=== PATIENT | female | born 1965 | race Caucasian/White ===

== ENCOUNTER 2018-10-24 10:00 | Outpatient (RCR) | payer BC, SELFPAY ==
--- NOTE | 2018-08-02 17:01 | PT.OIE ---
Current Diagnoses Stress incontinence (female) (male) (08/02/18) Provider Visit Care Team Role Provider Type L Kathy Sotomayor MD Family Provider Non-Staff Primary Care Provider Specialty: Family Practice Address: [address] [place] [address], [id number] Email: Loreta Castillo MD Attending Provider Non-Staff Specialty: HEALTH FACILITIES SURVEYOR Address: [facility] [address], [place], [address] Email: Physical Therapy Initial Evaluation PT-OP-A Visit Information Start: 08/02/18 16:32 Freq: Status: Active Protocol: Document 08/02/18 16:33 [facility] (Rec: 08/02/18 17:00 [facility] [email or web address]) Out-Patient Physical Therapy Visit Information Visit Information Visit Type Initial Evaluation Visit Start Time 13:45 Visit Stop Time 14:30 Total Visit Minutes 45 Visit Number 1 Evaluation Information Evaluation Date 08/02/18 PT-OP-B Current Condition Start: 08/02/18 16:32 Freq: Status: Active Protocol: Document 08/02/18 16:33 [facility] (Rec: 08/02/18 17:00 [facility] [email or web address]) Current Condition History of Current Condition Onset Date worsening symptoms in the past year Current Complaints c/o urinary incontinence with exercise and urgency History of Current Condition The patient is a 52 year old female who has has 6 vaginal deliveries and 1 delivery. Her youngest child is 12 years old. She reports experiencing increased symptoms of leakage in the past year. Her symptoms started slow but have progressed to more often. Treatment Goals Patient/Caregiver Goals The patients goals include being able to exercise or run after her grandkids without leakage and to urgency PT-OP-I Pelvic Floor Start: 08/02/18 16:32 Freq: Status: Active Protocol: Document 08/02/18 16:33 [facility] (Rec: 08/02/18 17:00 [facility] [email or web address]) Pelvic Floor Assessment Urine Pelvic Floor Surgery No Urinary Symptoms Urge Sensation Leakage Size Small Leakage Cause Cough Exercise Lifting Sneeze Urge Leaks Per Day depends on the activitiy and the day Voiding Frequency pt to fill out a bladder diary as she had a difficult time guessing Nocturia wakes at night to void sometimes Pelvic Clock Pelvic Clock 12-3 Atrophy Pelvic Clock 3-6 Atrophy Pelvic Clock 6-9 Atrophy Pelvic Clock 9-12 Atrophy Prolapse Cystocele Grade 1 SEMG (uV) Baseline 0 10 Second Contraction 4.4 Recruitment Pattern Poor/Slow Relaxation Poor/Slow Holding Poor/Slow Stability of Hold Poor/Slow SEMG Stability of Rest Good Contraction Ability Voluntary Contraction Weak Manual Muscle Testing Left 2 Manual Muscle Testing Right 2 Manual Muscle Testing Anterior 1 Manual Muscle Testing Posterior 2 Muscle Endurance (Seconds) 3 Comments Pelvic Floor Comments difficulty sustaining a pelvic floor contraction and she tends to use her gluteals if holding longer than a few seconds. Average on EMG biofeedback is 4.4 uv with maximum of 9.8 uv PT-OP-Q Treatments Start: 08/02/18 16:32 Freq: Status: Active Protocol: Document 08/02/18 16:33 [facility] (Rec: 08/02/18 17:00 [facility] [email or web address]) Therapeutic Exercises Supine Exercises 2 Supine Exercise Name roll outs with theraband Side bilateral Reps/Minutes 2 x10 reps 1 Supine Exercise Name isometric ball squeeze Reps/Minutes x 10 reps Neuro Re-Education Treatment Other Activities 1 Details pelvic floor neuro re- education with EMG biofeedback for pelvic floor Comments worked on recruitement of the anterior section of the levator ani PT-OP-T Assessment and Plan Start: 08/02/18 16:32 Freq: Status: Active Protocol: Document 08/02/18 16:33 [facility] (Rec: 08/02/18 17:00 [facility] [email or web address]) Physical Therapy Assessment Rehab Potential Rehabilitation Potential Good Evaluation Complexity Number of Personal Factors/Comorbidities 0 Number of Body Systems Impaired 1-2 Clinical Presentation at Evaluation Stable Impairments Impairments Activity Tolerance Strength Tone Other Impairments urinary incontinence Goals Four Impairment urinary stress incontinence Fpc Goal (LTG) With physical therapy and home strenthening Radha is able to eliminate her incontinence and provide a better shelf of support for her bladder to decrease pelvic organ prolapse . Three Impairment substitution of the gluteals for the pelvic floor Short Term Goal (STG) Radha is educated on levator ani recruitment utilizing EMG biofeedback and is able to sustain a contraction without gluteal substitution STG Duration 5 weeks Two Impairment poor endurance of the levator ani Short Term Goal (STG) improve endurance of the levator ani to 10 second hold time in supine STG Duration 5 weeks One Impairment Weakness of the levator ani, poor activation of the anterior pubococcygeus Fpc Goal (LTG) Improve levator ani recruitment and strength to improve to 3/5 or better on MMT LTG Duration 8 weeks Assessment Summary Assessment Radha presents to physical therapy today with signs and symptoms of urinary stress incontinence. She has had 6 vaginal deliveries and 1 C- section and notes her symptoms have been slowly worsening since her last delivery 12 years ago. She does have a slight prolapse as well but is not experiencing any symptoms of this. With examination today she is very weak in her pelvic floor musculature and has poor anterior pubococcygeus recruitment. She tends to substitute with her gluteals and has limited endurance of her pelvic floor. She responded well today with EMG biofeedback and I also began using her hip rotation to help her facilitate her pelvic floor. She is a good candidate for Physical therapy. Physical Therapy Plan Frequency and Duration Frequency of Treatment 1x/Week Duration of Treatment 8 weeks Plan of Care Start Date 08/02/18 Plan of Care End Date 09/27/18 Therapeutic Interventions Therapeutic Interventions Home Exercise Program Neuromuscular Re-education Patient/Caregiver Education Self-Care/Home Management Therapeutic Exercises Modalities Biofeedback Next Visit Focus/Plan Next Note Type Treatment Note Next Visit Plan EMG biofeedback for neuromuscular awareness of the pelvic floor, Begin working on Transverse abdominal stabilization
--- NOTE | 2018-08-02 17:01 | PT.OPPOC ---
Current Diagnoses Stress incontinence (female) (male) (08/02/18) Provider Visit Care Team Role Provider Type L Kathy Sotomayor MD Family Provider Non-Staff Primary Care Provider Specialty: Family Practice Address: [address] [place] [address], [id number] Email: Loreta Castillo MD Attending Provider Non-Staff Specialty: REEFER ENGINEER Address: [facility] [address], [place], [address] Email: Plan Of Care PT-OP-T Assessment and Plan Start: 08/02/18 16:32 Freq: Status: Active Protocol: Document 08/02/18 16:33 [facility] (Rec: 08/02/18 17:00 [facility] [email or web address]) Physical Therapy Assessment Rehab Potential Rehabilitation Potential Good Evaluation Complexity Number of Personal Factors/Comorbidities 0 Number of Body Systems Impaired 1-2 Clinical Presentation at Evaluation Stable Impairments Impairments Activity Tolerance Strength Tone Other Impairments urinary incontinence Goals Four Impairment urinary stress incontinence Side Hemmer Goal (LTG) With physical therapy and home strenthening Radha is able to eliminate her incontinence and provide a better shelf of support for her bladder to decrease pelvic organ prolapse . Three Impairment substitution of the gluteals for the pelvic floor Short Term Goal (STG) Radha is educated on levator ani recruitment utilizing EMG biofeedback and is able to sustain a contraction without gluteal substitution STG Duration 5 weeks Two Impairment poor endurance of the levator ani Short Term Goal (STG) improve endurance of the levator ani to 10 second hold time in supine STG Duration 5 weeks One Impairment Weakness of the levator ani, poor activation of the anterior pubococcygeus Side Hemmer Goal (LTG) Improve levator ani recruitment and strength to improve to 3/5 or better on MMT LTG Duration 8 weeks Assessment Summary Assessment Radha presents to physical therapy today with signs and symptoms of urinary stress incontinence. She has had 6 vaginal deliveries and 1 C- section and notes her symptoms have been slowly worsening since her last delivery 12 years ago. She does have a slight prolapse as well but is not experiencing any symptoms of this. With examination today she is very weak in her pelvic floor musculature and has poor anterior pubococcygeus recruitment. She tends to substitute with her gluteals and has limited endurance of her pelvic floor. She responded well today with EMG biofeedback and I also began using her hip rotation to help her facilitate her pelvic floor. She is a good candidate for Physical therapy. Physical Therapy Plan Frequency and Duration Frequency of Treatment 1x/Week Duration of Treatment 8 weeks Plan of Care Start Date 08/02/18 Plan of Care End Date 09/27/18 Therapeutic Interventions Therapeutic Interventions Home Exercise Program Neuromuscular Re-education Patient/Caregiver Education Self-Care/Home Management Therapeutic Exercises Modalities Biofeedback Next Visit Focus/Plan Next Note Type Treatment Note Next Visit Plan EMG biofeedback for neuromuscular awareness of the pelvic floor, Begin working on Transverse abdominal stabilization Plan of Care Dates Plan of Care Start Date 08/02/18 Plan of Care End Date 09/27/18 Please Sign and Return: I have reviewed this Plan of Care and certify that the skilled therapy services above are required to meet the patient?s needs. Physician Signature Date Printed Name and Credentials Clinical Instructor Signature Printed Name and Credentials
--- NOTE | 2018-08-28 12:48 | PT.OTN ---
Current Diagnoses Stress incontinence (female) (male) (08/28/18) Physical Therapy Treatment Note PT-OP-A Visit Information Start: 08/02/18 16:32 Freq: Status: Active Protocol: Document 08/28/18 12:39 [facility] (Rec: 08/28/18 12:48 [facility] [email or web address]) Out-Patient Physical Therapy Visit Information Visit Information Visit Type Treatment Note Visit Start Time 09:00 Visit Stop Time 09:45 Total Visit Minutes 45 Visit Number 2 Evaluation Information Evaluation Date 08/02/18 PT-OP-B Current Condition Start: 08/02/18 16:32 Freq: Status: Active Protocol: Document 08/02/18 16:33 [facility] (Rec: 08/02/18 17:00 [facility] [email or web address]) Current Condition History of Current Condition Onset Date worsening symptoms in the past year Current Complaints c/o urinary incontinence with exercise and urgency History of Current Condition The patient is a 52 year old female who has has 6 vaginal deliveries and 1 delivery. Her youngest child is 12 years old. She reports experiencing increased symptoms of leakage in the past year. Her symptoms started slow but have progressed to more often. Treatment Goals Patient/Caregiver Goals The patients goals include being able to exercise or run after her grandkids without leakage and to urgency PT-OP-C Subjective Start: 08/02/18 16:32 Freq: Status: Active Protocol: Document 08/28/18 12:39 [facility] (Rec: 08/28/18 12:48 [facility] [email or web address]) OP-PT Subjective Patient Comments Patient Comments Radha reports she has been trying to do the exercises but it was such a long time between visits it has been difficult to feel what she is actually doing. PT-OP-I Pelvic Floor Start: 08/02/18 16:32 Freq: Status: Active Protocol: Document 08/02/18 16:33 [facility] (Rec: 08/02/18 17:00 [facility] [email or web address]) Pelvic Floor Assessment Urine Pelvic Floor Surgery No Urinary Symptoms Urge Sensation Leakage Size Small Leakage Cause Cough Exercise Lifting Sneeze Urge Leaks Per Day depends on the activitiy and the day Voiding Frequency pt to fill out a bladder diary as she had a difficult time guessing Nocturia wakes at night to void sometimes Pelvic Clock Pelvic Clock 12-3 Atrophy Pelvic Clock 3-6 Atrophy Pelvic Clock 6-9 Atrophy Pelvic Clock 9-12 Atrophy Prolapse Cystocele Grade 1 SEMG (uV) Baseline 0 10 Second Contraction 4.4 Recruitment Pattern Poor/Slow Relaxation Poor/Slow Holding Poor/Slow Stability of Hold Poor/Slow SEMG Stability of Rest Good Contraction Ability Voluntary Contraction Weak Manual Muscle Testing Left 2 Manual Muscle Testing Right 2 Manual Muscle Testing Anterior 1 Manual Muscle Testing Posterior 2 Muscle Endurance (Seconds) 3 Comments Pelvic Floor Comments difficulty sustaining a pelvic floor contraction and she tends to use her gluteals if holding longer than a few seconds. Average on EMG biofeedback is 4.4 uv with maximum of 9.8 uv PT-OP-Q Treatments Start: 08/02/18 16:32 Freq: Status: Active Protocol: Document 08/28/18 12:39 [facility] (Rec: 08/28/18 12:48 [facility] [email or web address]) Therapeutic Exercises Supine Exercises 4 Supine Exercise Name pelvic floor quick contractions Reps/Minutes 10 reps with 2 second hold each 3 Supine Exercise Name pelvic floor long holds Reps/Minutes 10 second hold time with 10 second relaxation 2 Supine Exercise Name roll outs with theraband Side bilateral Reps/Minutes 2 x10 reps 1 Supine Exercise Name isometric ball squeeze Reps/Minutes x 10 reps Sidelying Exercises 1 Sidelying Exercise Name clam shells Reps/Minutes 3 x 10 reps Neuro Re-Education Treatment Other Activities 1 Details pelvic floor neuro re- education with NMES x 10 minutes for improved Comments for improved facilitation of the pelvic floor PT-OP-T Assessment and Plan Start: 08/02/18 16:32 Freq: Status: Active Protocol: Document 08/28/18 12:39 [facility] (Rec: 08/28/18 12:48 [facility] [email or web address]) Physical Therapy Assessment Assessment Summary Assessment Radha was improving with her maximum contraction today. Her average is 6.0 uv with max of 15.2 ( was 4.0 uv with max of 9.8 uv) We did a trial of NMES and she did well with this. I recommended a home rental for a month for improved facilitation of the pelvic floor. She did not feel the NMES until it was at level 10. Physical Therapy Plan Frequency and Duration Frequency of Treatment 1x/Week Duration of Treatment 8 weeks Plan of Care Start Date 08/02/18 Plan of Care End Date 09/27/18 Therapeutic Interventions Therapeutic Interventions Home Exercise Program Neuromuscular Re-education Patient/Caregiver Education Self-Care/Home Management Therapeutic Exercises Modalities Biofeedback Next Visit Focus/Plan Next Note Type Treatment Note Next Visit Plan progress pelvic floor and add in TA facilitation
--- NOTE | 2018-09-19 14:27 | PT.OTN ---
Current Diagnoses Stress incontinence (female) (male) (09/19/18) Physical Therapy Treatment Note PT-OP-A Visit Information Start: 08/02/18 16:32 Freq: Status: Active Protocol: Document 09/19/18 14:19 [facility] (Rec: 09/19/18 14:27 [facility] [email or web address]) Out-Patient Physical Therapy Visit Information Visit Information Visit Type Treatment Note Visit Start Time 10:00 Visit Stop Time 10:45 Total Visit Minutes 45 Visit Number 3 Evaluation Information Evaluation Date 08/02/18 PT-OP-B Current Condition Start: 08/02/18 16:32 Freq: Status: Active Protocol: Document 08/02/18 16:33 [facility] (Rec: 08/02/18 17:00 [facility] [email or web address]) Current Condition History of Current Condition Onset Date worsening symptoms in the past year Current Complaints c/o urinary incontinence with exercise and urgency History of Current Condition The patient is a 52 year old female who has has 6 vaginal deliveries and 1 delivery. Her youngest child is 12 years old. She reports experiencing increased symptoms of leakage in the past year. Her symptoms started slow but have progressed to more often. Treatment Goals Patient/Caregiver Goals The patients goals include being able to exercise or run after her grandkids without leakage and to urgency PT-OP-C Subjective Start: 08/02/18 16:32 Freq: Status: Active Protocol: Document 09/19/18 14:19 [facility] (Rec: 09/19/18 14:27 [facility] [email or web address]) OP-PT Subjective Patient Comments Patient Comments Radha reports her urgency symptoms are the same and she hasn't noticed any consistent change in her symptoms yet PT-OP-I Pelvic Floor Start: 08/02/18 16:32 Freq: Status: Active Protocol: Document 08/02/18 16:33 [facility] (Rec: 08/02/18 17:00 [facility] [email or web address]) Pelvic Floor Assessment Urine Pelvic Floor Surgery No Urinary Symptoms Urge Sensation Leakage Size Small Leakage Cause Cough Exercise Lifting Sneeze Urge Leaks Per Day depends on the activitiy and the day Voiding Frequency pt to fill out a bladder diary as she had a difficult time guessing Nocturia wakes at night to void sometimes Pelvic Clock Pelvic Clock 12-3 Atrophy Pelvic Clock 3-6 Atrophy Pelvic Clock 6-9 Atrophy Pelvic Clock 9-12 Atrophy Prolapse Cystocele Grade 1 SEMG (uV) Baseline 0 10 Second Contraction 4.4 Recruitment Pattern Poor/Slow Relaxation Poor/Slow Holding Poor/Slow Stability of Hold Poor/Slow SEMG Stability of Rest Good Contraction Ability Voluntary Contraction Weak Manual Muscle Testing Left 2 Manual Muscle Testing Right 2 Manual Muscle Testing Anterior 1 Manual Muscle Testing Posterior 2 Muscle Endurance (Seconds) 3 Comments Pelvic Floor Comments difficulty sustaining a pelvic floor contraction and she tends to use her gluteals if holding longer than a few seconds. Average on EMG biofeedback is 4.4 uv with maximum of 9.8 uv PT-OP-Q Treatments Start: 08/02/18 16:32 Freq: Status: Active Protocol: Document 09/19/18 14:19 [facility] (Rec: 09/19/18 14:27 [facility] [email or web address]) Therapeutic Exercises Supine Exercises 5 Supine Exercise Name TA with marching 4 Supine Exercise Name pelvic floor quick contractions Reps/Minutes 10 reps with 2 second hold each 3 Supine Exercise Name pelvic floor long holds Reps/Minutes 10 second hold time with 10 second relaxation 2 Supine Exercise Name roll outs with theraband Side bilateral Reps/Minutes 2 x10 reps 1 Supine Exercise Name isometric ball squeeze Reps/Minutes x 10 reps Sidelying Exercises 1 Sidelying Exercise Name clam shells Reps/Minutes 3 x 10 reps Other Exercises 1 Other Exercise Name quadraped TA facilitation Neuro Re-Education Treatment Other Activities 1 Details pelvic floor neuro re- education with NMES x 10 minutes for improved Comments for improved facilitation of the pelvic floor PT-OP-T Assessment and Plan Start: 08/02/18 16:32 Freq: Status: Active Protocol: Document 09/19/18 14:19 [facility] (Rec: 09/19/18 14:27 [facility] [email or web address]) Physical Therapy Assessment Assessment Summary Assessment Still very difficult for Radha to facilitate her pelvic floor. She does do better following NMES so we will continue to work on this as a treatment protocol. She did report today she has surgery for her bladder scheduled for april Physical Therapy Plan Frequency and Duration Frequency of Treatment 1x/Week Duration of Treatment 8 weeks Plan of Care Start Date 08/02/18 Plan of Care End Date 09/27/18 Therapeutic Interventions Therapeutic Interventions Home Exercise Program Neuromuscular Re-education Patient/Caregiver Education Self-Care/Home Management Therapeutic Exercises Modalities Biofeedback Next Visit Focus/Plan Next Note Type Treatment Note Next Visit Plan begin with NMES first next visit
--- NOTE | 2018-10-07 15:18 | PT.OTN ---
Current Diagnoses Stress incontinence (female) (male) (10/03/18) Physical Therapy Treatment Note PT-OP-A Visit Information Start: 08/02/18 16:32 Freq: Status: Active Protocol: Document 10/03/18 10:00 [facility] (Rec: 10/07/18 15:16 [facility] [email or web address]) Out-Patient Physical Therapy Visit Information Visit Information Visit Type Progress Note Visit Start Time 10:00 Visit Stop Time 10:45 Total Visit Minutes 45 Visit Number 4 Evaluation Information Evaluation Date 08/02/18 PT-OP-B Current Condition Start: 08/02/18 16:32 Freq: Status: Active Protocol: Document 08/02/18 16:33 [facility] (Rec: 08/02/18 17:00 [facility] [email or web address]) Current Condition History of Current Condition Onset Date worsening symptoms in the past year Current Complaints c/o urinary incontinence with exercise and urgency History of Current Condition The patient is a 52 year old female who has has 6 vaginal deliveries and 1 delivery. Her youngest child is 12 years old. She reports experiencing increased symptoms of leakage in the past year. Her symptoms started slow but have progressed to more often. Treatment Goals Patient/Caregiver Goals The patients goals include being able to exercise or run after her grandkids without leakage and to urgency PT-OP-C Subjective Start: 08/02/18 16:32 Freq: Status: Active Protocol: Document 10/03/18 10:00 [facility] (Rec: 10/07/18 15:16 [facility] [email or web address]) OP-PT Subjective Patient Comments Patient Comments Radha reports she is finally starting to be able to feel her pelvic floor with a contraction. PT-OP-I Pelvic Floor Start: 08/02/18 16:32 Freq: Status: Active Protocol: Document 10/07/18 15:16 [facility] (Rec: 10/07/18 15:18 [facility] [email or web address]) Pelvic Floor Assessment SEMG (uV) Baseline 0 Quick Contraction 10 10 Second Contraction 7.1 Recruitment Pattern Fair Relaxation Fair Holding Fair Stability of Hold Fair SEMG Stability of Rest Good Contraction Ability Voluntary Contraction Weak Manual Muscle Testing Left 2 Manual Muscle Testing Right 2 Manual Muscle Testing Anterior 2 Manual Muscle Testing Posterior 2 Muscle Endurance (Seconds) 8 Number of Quick Contractions In 10 5 Seconds Comments Pelvic Floor Comments Improving ability to isolate the pelvic floor without gluteals or adductors Average now 7.1 ux with max of 14 uv PT-OP-Q Treatments Start: 08/02/18 16:32 Freq: Status: Active Protocol: Document 10/03/18 10:00 [facility] (Rec: 10/07/18 15:16 [facility] [email or web address]) Therapeutic Exercises Supine Exercises 7 Supine Exercise Name templates on EMG biofeedback for coordination and eccentric control. 6 Supine Exercise Name bridges Reps/Minutes 2x10 5 Supine Exercise Name TA with marching 4 Supine Exercise Name pelvic floor quick contractions Reps/Minutes 10 reps with 2 second hold each 3 Supine Exercise Name pelvic floor long holds Reps/Minutes 10 second hold time with 10 second relaxation 2 Supine Exercise Name roll outs with theraband Side bilateral Reps/Minutes 2 x10 reps 1 Supine Exercise Name isometric ball squeeze Reps/Minutes x 10 reps Sidelying Exercises 1 Sidelying Exercise Name clam shells Reps/Minutes 3 x 10 reps Neuro Re-Education Treatment Other Activities 1 Details pelvic floor neuro re- education with NMES x 10 minutes for improved Comments for improved facilitation of the pelvic floor PT-OP-T Assessment and Plan Start: 08/02/18 16:32 Freq: Status: Active Protocol: Document 10/03/18 10:00 [facility] (Rec: 10/07/18 15:16 [facility] [email or web address]) Physical Therapy Assessment Progress Towards Goals Progress Towards Goals Progressing Toward Goals Assessment Summary Assessment Radha has been seen for 4 visits in PT since 08/02/18. Using NMES she is now able to feel a pelvic floor contraction. She has been able to increase her pelvic floor recruitment on EMG biofeedback to an average of 7 .1 and max of 14.0. Initially she was unable to facilitate the pelvic floor on her own and needed adductor assist for a contraction. She has missed visits over the holidays and and would like to add additional visits to continue working towards her goals. Physical Therapy Plan Frequency and Duration Frequency of Treatment 1x/Week Duration of Treatment 8 weeks Plan of Care Start Date 10/03/18 Plan of Care End Date 11/28/18 Therapeutic Interventions Therapeutic Interventions Home Exercise Program Neuromuscular Re-education Patient/Caregiver Education Self-Care/Home Management Therapeutic Exercises Modalities Biofeedback Next Visit Focus/Plan Next Note Type Treatment Note Next Visit Plan Continue to use NMES to warm up the pelvic floor, begin to progress to standing dynamic pelvic floor exercises
--- NOTE | 2018-10-17 12:45 | PT.OTN ---
Current Diagnoses Stress incontinence (female) (male) (10/17/18) Physical Therapy Treatment Note PT-OP-A Visit Information Start: 08/02/18 16:32 Freq: Status: Active Protocol: Document 10/17/18 10:13 [facility] (Rec: 10/17/18 10:18 [facility] [id number]) Out-Patient Physical Therapy Visit Information Visit Information Visit Type Treatment Note Visit Start Time 09:00 Visit Stop Time 09:45 Total Visit Minutes 45 Visit Number 5 Evaluation Information Evaluation Date 08/02/18 PT-OP-B Current Condition Start: 08/02/18 16:32 Freq: Status: Active Protocol: Document 08/02/18 16:33 [facility] (Rec: 08/02/18 17:00 [facility] [email or web address]) Current Condition History of Current Condition Onset Date worsening symptoms in the past year Current Complaints c/o urinary incontinence with exercise and urgency History of Current Condition The patient is a 52 year old female who has has 6 vaginal deliveries and 1 delivery. Her youngest child is 12 years old. She reports experiencing increased symptoms of leakage in the past year. Her symptoms started slow but have progressed to more often. Treatment Goals Patient/Caregiver Goals The patients goals include being able to exercise or run after her grandkids without leakage and to urgency PT-OP-C Subjective Start: 08/02/18 16:32 Freq: Status: Active Protocol: Document 10/17/18 10:13 [facility] (Rec: 10/17/18 10:18 [facility] [id number]) OP-PT Subjective Patient Comments Patient Comments Able to stop the urge in the car but still during the day she can leak for no reason at all. Patient Reported Progress Improving PT-OP-I Pelvic Floor Start: 08/02/18 16:32 Freq: Status: Active Protocol: Document 10/07/18 15:16 [facility] (Rec: 10/07/18 15:18 [facility] [email or web address]) Pelvic Floor Assessment SEMG (uV) Baseline 0 Quick Contraction 10 10 Second Contraction 7.1 Recruitment Pattern Fair Relaxation Fair Holding Fair Stability of Hold Fair SEMG Stability of Rest Good Contraction Ability Voluntary Contraction Weak Manual Muscle Testing Left 2 Manual Muscle Testing Right 2 Manual Muscle Testing Anterior 2 Manual Muscle Testing Posterior 2 Muscle Endurance (Seconds) 8 Number of Quick Contractions In 10 5 Seconds Comments Pelvic Floor Comments Improving ability to isolate the pelvic floor without gluteals or adductors Average now 7.1 ux with max of 14 uv PT-OP-Q Treatments Start: 08/02/18 16:32 Freq: Status: Active Protocol: Document 10/17/18 10:00 [facility] (Rec: 10/17/18 12:44 [facility] [email or web address]) Therapeutic Exercises Supine Exercises 7 Supine Exercise Name templates on EMG biofeedback for coordination and eccentric control. 6 Supine Exercise Name bridges with ball squeeze Reps/Minutes 2x10 5 Supine Exercise Name TA with marching and heel slides Reps/Minutes 10 each side 4 Supine Exercise Name pelvic floor quick contractions Reps/Minutes 10 reps with 2 second hold each 3 Supine Exercise Name pelvic floor long holds Reps/Minutes 10 second hold time with 10 second relaxation 1 Supine Exercise Name isometric ball squeeze Reps/Minutes x 10 reps Neuro Re-Education Treatment Other Activities 1 Details pelvic floor neuro re- education with NMES x 10 minutes for improved Comments for improved facilitation of the pelvic floor x 10 minutes. Feels more contraction on the left compared to the right PT-OP-T Assessment and Plan Start: 08/02/18 16:32 Freq: Status: Active Protocol: Document 10/17/18 10:00 [facility] (Rec: 10/17/18 12:44 [facility] [email or web address]) Physical Therapy Assessment Assessment Summary Assessment Average today on EMG biofeedback is 10.9 uv with max of 33 uv. Good increase in pelvic floor contraction intensity. She has some improved sensation but still has decreased sensation on the right side as compared to the left Physical Therapy Plan Frequency and Duration Frequency of Treatment 1x/Week Duration of Treatment 8 weeks Plan of Care Start Date 10/03/18 Plan of Care End Date 11/28/18 Therapeutic Interventions Therapeutic Interventions Home Exercise Program Neuromuscular Re-education Patient/Caregiver Education Self-Care/Home Management Therapeutic Exercises Modalities Biofeedback Next Visit Focus/Plan Next Note Type Treatment Note Next Visit Plan NMES, TA dynamic stabilization , standing side steps with theraband and squats with pelvic floor engagement
--- NOTE | 2018-10-24 12:33 | PT.OTN ---
Current Diagnoses Stress incontinence (female) (male) (10/24/18) Physical Therapy Treatment Note PT-OP-A Visit Information Start: 08/02/18 16:32 Freq: Status: Active Protocol: Document 10/24/18 10:27 [facility] (Rec: 10/24/18 10:28 [facility] [id number]) Out-Patient Physical Therapy Visit Information Visit Information Visit Type Treatment Note Visit Start Time 10:00 Visit Stop Time 10:45 Total Visit Minutes 45 Visit Number 6 PT-OP-B Current Condition Start: 08/02/18 16:32 Freq: Status: Active Protocol: Document 08/02/18 16:33 [facility] (Rec: 08/02/18 17:00 [facility] [email or web address]) Current Condition History of Current Condition Onset Date worsening symptoms in the past year Current Complaints c/o urinary incontinence with exercise and urgency History of Current Condition The patient is a 52 year old female who has has 6 vaginal deliveries and 1 delivery. Her youngest child is 12 years old. She reports experiencing increased symptoms of leakage in the past year. Her symptoms started slow but have progressed to more often. Treatment Goals Patient/Caregiver Goals The patients goals include being able to exercise or run after her grandkids without leakage and to urgency PT-OP-C Subjective Start: 08/02/18 16:32 Freq: Status: Active Protocol: Document 10/24/18 10:27 [facility] (Rec: 10/24/18 12:33 [facility] [email or web address]) OP-PT Subjective Patient Comments Patient Comments Feeling her pelvic floor more now but still experiencing leaking brian with strong cough PT-OP-I Pelvic Floor Start: 08/02/18 16:32 Freq: Status: Active Protocol: Document 10/07/18 15:16 [facility] (Rec: 10/07/18 15:18 [facility] [email or web address]) Pelvic Floor Assessment SEMG (uV) Baseline 0 Quick Contraction 10 10 Second Contraction 7.1 Recruitment Pattern Fair Relaxation Fair Holding Fair Stability of Hold Fair SEMG Stability of Rest Good Contraction Ability Voluntary Contraction Weak Manual Muscle Testing Left 2 Manual Muscle Testing Right 2 Manual Muscle Testing Anterior 2 Manual Muscle Testing Posterior 2 Muscle Endurance (Seconds) 8 Number of Quick Contractions In 10 5 Seconds Comments Pelvic Floor Comments Improving ability to isolate the pelvic floor without gluteals or adductors Average now 7.1 ux with max of 14 uv PT-OP-Q Treatments Start: 08/02/18 16:32 Freq: Status: Active Protocol: Document 10/24/18 10:27 [facility] (Rec: 10/24/18 12:33 [facility] [email or web address]) Therapeutic Exercises Supine Exercises 7 Supine Exercise Name templates on EMG biofeedback for coordination and eccentric control. 5 Supine Exercise Name TA with marching and heel slides Reps/Minutes 10 each side 3 Supine Exercise Name pelvic floor long holds Reps/Minutes 10 second hold time with 10 second relaxation Sitting Exercises 1 Sitting Exercise Name seated ball pelvic floor contractions Standing Exercises 2 Standing Exercise Name sidesteps with theraband 1 Standing Exercise Name standing squats Other Exercises 1 Other Exercise Name quadraped TA facilitation Comments with opposite arm and leg lifts PT-OP-T Assessment and Plan Start: 08/02/18 16:32 Freq: Status: Active Protocol: Document 10/24/18 10:27 [facility] (Rec: 10/24/18 12:33 [facility] [email or web address]) Physical Therapy Assessment Assessment Summary Assessment able to tolerate standing pelvic floor exercises, review all exercises next visit as this is the last scheduled visit for Radha Physical Therapy Plan Frequency and Duration Frequency of Treatment 1x/Week Duration of Treatment 8 weeks Plan of Care Start Date 10/03/18 Plan of Care End Date 11/28/18 Therapeutic Interventions Therapeutic Interventions Home Exercise Program Neuromuscular Re-education Patient/Caregiver Education Self-Care/Home Management Therapeutic Exercises Modalities Biofeedback Next Visit Focus/Plan Next Note Type Treatment Note Next Visit Plan review HEP for last scheduled visit in PT
--- NOTE | 2019-06-24 12:05 | PT.OPDS ---
Current Diagnoses Stress incontinence (female) (male) (10/24/18) Visit Care Team Role Provider Type L Kathy Sotomayor MD Family Provider Non-Staff Primary Care Provider Specialty: Family Practice Address: [address] [place] [address], [id number] Email: Lortea Castillo MD Attending Provider Non-Staff Specialty: [employer]ACHINE [employer]PERATOR Address: [facility] [address], [place], [address] Email: Visit Number Visit Number 6 Discharge Summary PT-OP-B Current Condition Start: 08/02/18 16:32 Freq: Status: Active Protocol: Document 08/02/18 16:33 [facility] (Rec: 08/02/18 17:00 [facility] [email or web address]) Current Condition History of Current Condition Onset Date worsening symptoms in the past year Current Complaints c/o urinary incontinence with exercise and urgency History of Current Condition The patient is a 52 year old female who has has 6 vaginal deliveries and 1 delivery. Her youngest child is 12 years old. She reports experiencing increased symptoms of leakage in the past year. Her symptoms started slow but have progressed to more often. Treatment Goals Patient/Caregiver Goals The patients goals include being able to exercise or run after her grandkids without leakage and to urgency PT-OP-C Subjective Start: 08/02/18 16:32 Freq: Status: Active Protocol: Document 10/24/18 10:27 [facility] (Rec: 10/24/18 12:33 [facility] [email or web address]) OP-PT Subjective Patient Comments Patient Comments Feeling her pelvic floor more now but still experiencing leaking brian with strong cough PT-OP-I Pelvic Floor Start: 08/02/18 16:32 Freq: Status: Active Protocol: Document 10/07/18 15:16 [facility] (Rec: 10/07/18 15:18 [facility] [email or web address]) Pelvic Floor Assessment SEMG (uV) Baseline 0 Quick Contraction 10 10 Second Contraction 7.1 Recruitment Pattern Fair Relaxation Fair Holding Fair Stability of Hold Fair SEMG Stability of Rest Good Contraction Ability Voluntary Contraction Weak Manual Muscle Testing Left 2 Manual Muscle Testing Right 2 Manual Muscle Testing Anterior 2 Manual Muscle Testing Posterior 2 Muscle Endurance (Seconds) 8 Number of Quick Contractions In 10 5 Seconds Comments Pelvic Floor Comments Improving ability to isolate the pelvic floor without gluteals or adductors Average now 7.1 ux with max of 14 uv PT-OP-T Assessment and Plan Start: 08/02/18 16:32 Freq: Status: Active Protocol: Document 06/24/19 12:03 [facility] (Rec: 06/24/19 12:05 [facility] [email or web address]) Physical Therapy Assessment Goals Four Impairment urinary stress incontinence Travel Rn Or Goal (LTG) With physical therapy and home strenthening Radha is able to eliminate her incontinence and provide a better shelf of support for her bladder to decrease pelvic organ prolapse . GOOD PROGRESS, overall reduction of leakage, still leaks with strong cough or sneeze Three Impairment substitution of the gluteals for the pelvic floor Short Term Goal (STG) Radha is educated on levator ani recruitment utilizing EMG biofeedback and is able to sustain a contraction without gluteal substitution GOAL MET STG Duration 5 weeks Two Impairment poor endurance of the levator ani Short Term Goal (STG) improve endurance of the levator ani to 10 second hold time in supine GOAL MET STG Duration 5 weeks One Impairment Weakness of the levator ani, poor activation of the anterior pubococcygeus Travel Rn Or Goal (LTG) Improve levator ani recruitment and strength to improve to 3/5 or better on MMT LTG Duration 8 weeks Assessment Summary Assessment able to tolerate standing pelvic floor exercises, and good improvement overall with pelvic floor recruitment Physical Therapy Plan Discharge Physical Therapy Discharge Reasons Goals Met Discharge Comments Good overall improvement with pelvic floor strength
== END 2019-06-28 11:28 ==
LOC: PHYS 10:00
PROVIDERS: Family Provider Family Medicine; PCP Family Medicine; Visit Provider Obstetrics & Gynecology
DX: N39.3 Stress incontinence (female) (male) (principal)
CPT/HCPCS: 97110; 97112; 97161